=== PATIENT | female | born 1995 | race Caucasian/White ===

== ENCOUNTER 2017-04-30 21:01 | Emergency (ER) | payer OTHER ==
[2017-04-30 22:18] LABS: APPEARANCE,URINE CLEAR; BILIRUBIN,URINE NEGATIVE (NEGATIVE); GLUCOSE, URINE NEGATIVE (NEGATIVE); KETONES,URINE NEGATIVE (NEGATIVE); LEUKOCYTE ESTERASE,URINE NEGATIVE (NEGATIVE); NITRITE,URINE NEGATIVE (NEGATIVE); PROTEIN,URINE NEGATIVE (NEGATIVE); URINE SPECIFIC GRAVITY 1.012; UROBILINOGEN,URINE NEGATIVE mg/dL (<2.0)
[2017-04-30 23:49] LABS: ABSOLUTE BASOPHILS # (AUTO) 0.1 10^3/uL (0.0-0.2); ABSOLUTE EOSINOPHILS # (AUTO) 0.1 10^3/uL (0.0-0.6); ABSOLUTE LYMPHOCYTES (AUTO) 3.5 10^3/uL (0.5-4.7); ABSOLUTE MONOCYTES (AUTO) 0.6 10^3/uL (0.1-1.4); ABSOLUTE NEUT (AUTO) 6.2 10^3/uL (1.7-8.2); EOSINOPHILS % (AUTO) 1.1 % (0-6); HEMATOCRIT 38.5 % (36.0-47.0); HEMOGLOBIN 13.5 g/dL (12.0-15.5); LYMPHOCYTES % (AUTO) 33.6 % (13-45); MEAN CORPUSCULAR HEMOGLOBIN 29.6 pg (27.0-33.4); MEAN CORPUSCULAR VOLUME 85 fl (80-97); MONOCYTES % (AUTO) 5.2 % (3-13); RED BLOOD COUNT 4.55 10^6/uL (3.72-5.28); RED CELL DISTRIBUTION WIDTH 13.3 % (11.5-14.0); SEGMENTED NEUTROPHILS % (AUTO) 59.1 % (42-78); WHITE BLOOD COUNT 10.5 10^3/uL (4.0-10.5)
[2017-04-30] MEDS ORDERED: BUTALB/ACETAMINOPHEN/CAFFEINE 1 TAB EACH PO ONE (23:59)
[2017-04-30] MEDS ORDERED: IBUPROFEN 600 MG TABLET PO ONE (23:59)
--- NOTE | 2017-05-01 00:04 | ER Document Report ---
ED General - General Chief Complaint: Back Pain Stated Complaint: ABDOMINAL PAIN Time Seen by Provider: 04/30/17 22:45 Notes: Patient is a 22-year-old female with a past medical history of polycystic ovarian syndrome and ovarian cysts who presents with 1 week of intermittent low back pain and lower abdominal cramping. Does describe the pain as an intermittent, dull, aching, cramping pain to the low back and lower abdomen. She has not tried anything to improve the pain. She has not noted that anything worsens the pain. She denies a history of similar symptoms in the past. She has not seen her primary care doctor regarding today's concerns. She denies any fever or constitutional symptoms. No vomiting or diarrhea. She denies any dysuria, vaginal bleeding or discharge. This a last menstrual period was approximately 3 years ago. She does not use anything for control. TRAVEL OUTSIDE OF THE [place] IN LAST 30 DAYS: No - Related Data Allergies/Adverse Reactions: No Known Allergies Allergy (Unverified 04/01/16 12:19) Home Medications: Current Home Medications No Home Medications 04/30/17 [History] Past Medical History - General Information source: Patient - Social History Smoking Status: Never Smoker Frequency of alcohol use: None Drug Abuse: None Lives with: Family Family History: Reviewed & Not Pertinent Patient has suicidal ideation: No Patient has homicidal ideation: No Renal/ Medical History: Reports: Hx Ovarian Cysts - PCOS. Denies: Hx Peritoneal Dialysis Surgical Hx: Negative - Immunizations Hx Diphtheria, Pertussis, Tetanus Vaccination: Yes Review of Systems - Review of Systems Notes: Constitutional: Negative for fever. HENT: Negative for sore throat. Eyes: Negative for visual changes. Cardiovascular: Negative for chest pain. Respiratory: Negative for shortness of breath. Gastrointestinal: Positive for abdominal pain. Genitourinary: Negative for dysuria. Musculoskeletal: Positive for back pain. Skin: Negative for rash. Neurological: Negative for headaches, weakness or numbness. 10 point ROS negative except as marked above and in HPI. Physical Exam - Vital signs Vitals: Temp Pulse Resp BP Pulse Ox 98.1 F 84 16 127/78 H 100 04/30/17 21:48 04/30/17 21:48 04/30/17 21:48 04/30/17 21:48 04/30/17 21:48 Interpretation: Normal Notes: PHYSICAL EXAMINATION: GENERAL: Well-appearing, well-nourished and in no acute distress. HEAD: Atraumatic, normocephalic. EYES: Pupils equal round and reactive to light, extraocular movements intact, sclera anicteric, conjunctiva are normal. ENT: nares patent, oropharynx clear without exudates. Moist mucous membranes. NECK: Normal range of motion, supple without lymphadenopathy LUNGS: Breath sounds clear to auscultation bilaterally and equal. No wheezes rales or rhonchi. HEART: Regular rate and rhythm without murmurs ABDOMEN: Soft, nontender, normoactive bowel sounds. No guarding, no rebound. No masses appreciated. Back: No midline spinal tenderness, step-offs or deformities. No focal CVA tenderness. EXTREMITIES: Normal range of motion, no pitting or edema. No cyanosis. NEUROLOGICAL: No focal neurological deficits. Moves all extremities spontaneously and on command. PSYCH: Normal mood, normal affect. SKIN: Warm, Dry, normal turgor, no rashes or lesions noted. Course - Re-evaluation Re-evalutation: 05/01/17 00:03 Patient presents with 1 week of diffuse lower abdominal cramping and low back pain. Abdominal exam is benign with mild bilateral adnexal tenderness but no focal right lower quadrant tenderness, rebound or guarding to suggest an acute appendicitis. Moreover clinical history is not consistent with this diagnosis. I have a very low clinical suspicion for tubo-ovarian abscess or ovarian torsion based on history and exam. Patient does have a history of polycystic ovarian syndrome and has been anovulatory for at least 3 years. I suspect that this may be part of her clinical picture today. Her vitals otherwise within normal limits. Urinalysis is clear without any evidence of an acute cystitis or pyelonephritis. She has no CVA tenderness. Will proceed with transvaginal ultrasound, labs and reassess. 05/01/17 02:50 Labs are broadly unremarkable. Transvaginal ultrasound likewise unremarkable. Patient does continue to complain of low back pain but continues to deny any focal abdominal pain on palpation. At this time the exact etiology of her low back pain is unclear but I do not suspect any acute life-threatening pathology. At this time will discharge with return precautions and follow-up recommendations. Verbal discharge instructions given a the bedside and opportunity for questions given. Medication warnings reviewed. Patient is in agreement with this plan and has verbalized understanding of return precautions and the need for primary care follow-up in the next 24-72 hours. - Vital Signs Vital signs: Temp Pulse Resp BP Pulse Ox 98.1 F 74 20 121/74 98 04/30/17 21:48 05/01/17 03:24 05/01/17 03:24 05/01/17 03:24 05/01/17 03:24 - Laboratory Result Diagrams: 04/30/17 23:35 05/01/17 01:50 - Diagnostic Test Radiology reviewed: Reports reviewed Discharge - Discharge Clinical Impression: Abdominal cramping Low back pain Qualifiers: Chronicity: acute Back pain laterality: bilateral Sciatica presence: without sciatica Qualified Code(s): M54.5 - Low back pain Condition: Good Disposition: HOME, SELF-CARE Additional Instructions: You have been seen in the Emergency Department (ED) for abdominal pain. Your evaluation did not identify a clear cause of your symptoms but was generally reassuring. For your pain: Take ibuprofen 600 mg and acetaminophen 1000 mg every 6 hours together as needed for pain. Please follow up with your doctor as soon as possible regarding today's emergent visit and the symptoms that are bothering you. Return to the ED if your abdominal pain worsens or fails to improve, you develop bloody vomiting, bloody diarrhea, you are unable to tolerate fluids due to vomiting, fever greater than 101, or other symptoms that concern you.
[2017-05-01] MEDS ORDERED: LIDOCAINE 5% (700 MG) TRANSDERMAL ADH..PATCH TP ONE (02:43)
[2017-05-01] MEDS ORDERED: MORPHINE SULFATE IR 15 MG TABLET PO ONE (02:43)
--- NOTE | 2017-05-01 02:43 | RADIOLOGY REPORT (SQ) ---
EXAM: Pelvic ultrasound. INDICATION: eval bilateral adnexal pain TECHNIQUE: Grayscale and Doppler sonogram of the pelvis. Transvaginal technique was used for better evaluation of the pelvic viscera. COMPARISON: None. FINDINGS: Uterus: Anteverted. Measures 7.7 x 2.9 x 4.3 cm cm. Endometrial stripe: Measures 1 cm which is not thickened. Right ovary: Measures 3.7 x 3.3 x 2.3 cm. Normal doppler flow. Left ovary: Measures 3.4 x 3.7 x 2.7 cm. Normal doppler flow. Other: Free fluid: None. IMPRESSION: 1. Unremarkable pelvic ultrasound.
[2017-05-01 02:45] LABS: ALANINE AMINOTRANSFERASE 45 U/L (9-52); ALBUMIN 4.6 g/dL (3.5-5.0); ALKALINE PHOSPHATASE 110 U/L (38-126); ANION GAP 12 (5-19); ASPARTATE AMINO TRANSFERASE 36 U/L (14-36); BILIRUBIN,DIRECT 0.3 mg/dL (0.0-0.4); BILIRUBIN,TOTAL 0.5 mg/dL (0.2-1.3); BLOOD UREA NITROGEN 12 mg/dL (7-20); CALCIUM 9.6 mg/dL (8.4-10.2); CARBON DIOXIDE 26 mmol/L (22-30); CHLORIDE 103 mmol/L (98-107); CREATININE RESULT 0.72 mg/dL (0.52-1.25); GLUCOSE 87 mg/dL (75-110); POTASSIUM 3.7 mmol/L (3.6-5.0); SODIUM 140.6 mmol/L (137-145); TOTAL PROTEIN 7.7 g/dL (6.3-8.2)
[2017-05-01] MEDS ORDERED: KETOROLAC TROMETHAMINE INJ/PF 30 MG/1 ML SDV IV ONE (02:58)
[2017-05-01] MEDS ORDERED: METOCLOPRAMIDE HCL INJ/PF 10 MG/2 ML SDV IV ONE (02:58)
[2017-05-01 03:24] VITALS: BP 121/74
== END 2017-05-01 03:23 | disposition home or self-care (01) ==
LOC: ER 21:01
DX: M54.5 Low back pain (principal); R10.9 Unspecified abdominal pain; E28.2 Polycystic ovarian syndrome
CPT/HCPCS: 99284; 96374; 96375; 36415; 83690; 84703; 85025; 80053; 81001; 76830; 93976; J3490; J1885; J2765

== ENCOUNTER 2018-03-13 17:37 | Emergency (ER) | payer OTHER ==
[2018-03-13] MEDS ORDERED: NORMAL SALINE 1000 ML 1,000 ML IV ONE (18:01)
--- NOTE | 2018-03-13 18:01 | ER Document Report ---
ED Medical Screen (RME) - General Chief Complaint: Possible Kidney Stone Stated Complaint: FLANK PAIN Time Seen by Provider: 03/13/18 17:58 Mode of Arrival: Ambulatory Information source: Patient Notes: This is a 23-year-old female with a history of PCOS who presents to the emergency room with left CVA tenderness and hematuria. Patient was sent over from urgent care for possible kidney stone. Patient states she has had this pain for the last several weeks and [facility] and each time was sent home. She denies having any imaging studies or even a urine test. Also of significance is she has been seen at the urgent care several times this week for an allergic reaction which they feel is environmental (i.e. grass). The patient has gotten several steroid shots recently and is currently on prednisone and Benadryl. TRAVEL OUTSIDE OF THE [place] IN LAST 30 DAYS: No - Related Data Allergies/Adverse Reactions: grass Allergy (Uncoded 03/13/18 17:58) Past Medical History - Social History Frequency of alcohol use: None Drug Abuse: None Renal/ Medical History: Reports: Hx Ovarian Cysts - PCOS. Denies: Hx Peritoneal Dialysis - Immunizations Hx Diphtheria, Pertussis, Tetanus Vaccination: Yes Physical Exam - Vital signs Vitals: Temp Pulse Resp BP Pulse Ox 99.5 F 84 16 133/71 H 97 03/13/18 17:50 03/13/18 17:50 03/13/18 17:50 03/13/18 17:50 03/13/18 17:50 Course - Vital Signs Vital signs: Temp Pulse Resp BP Pulse Ox 99.5 F 84 16 133/71 H 97 03/13/18 17:50 03/13/18 17:50 03/13/18 17:50 03/13/18 17:50 03/13/18 17:50
[2018-03-13 18:58] LABS: APPEARANCE,URINE SLIGHTLY-CLOUDY; BILIRUBIN,URINE NEGATIVE (NEGATIVE); COLOR,URINE YELLOW; GLUCOSE, URINE NEGATIVE (NEGATIVE); KETONES,URINE NEGATIVE (NEGATIVE); LEUKOCYTE ESTERASE,URINE TRACE (NEGATIVE); NITRITE,URINE NEGATIVE (NEGATIVE); PROTEIN,URINE NEGATIVE (NEGATIVE); URINE SPECIFIC GRAVITY 1.027; UROBILINOGEN,URINE NEGATIVE mg/dL (<2.0)
[2018-03-13] MEDS ORDERED: FENTANYL CITRATE INJ/PF 100 MCG/2 ML AMPUL IV ONE (19:34)
[2018-03-13] MEDS ORDERED: ONDANSETRON HCL INJ/PF 4 MG/2 ML SDV IV ONE (19:34)
[2018-03-13 19:48] LABS: HEMATOCRIT 42.3 % (36.0-47.0); HEMOGLOBIN 14.4 g/dL (12.0-15.5); MEAN CORPUSCULAR HEMOGLOBIN 29.1 pg (27.0-33.4); MEAN CORPUSCULAR HGB CONC 34.1 g/dL (32.0-36.0); MEAN CORPUSCULAR VOLUME 86 fl (80-97); PLATELET COUNT 499 10^3/uL (150-450); RED BLOOD COUNT 4.95 10^6/uL (3.72-5.28); RED CELL DISTRIBUTION WIDTH 12.8 % (11.5-14.0); WHITE BLOOD COUNT 22.9 10^3/uL (4.0-10.5)
[2018-03-13 20:06] LABS: ABSOLUTE LYMPHOCYTES# (MANUAL) 3.7 10^3/uL (0.5-4.7); ABSOLUTE MONOCYTES # (MANUAL) 0.2 10^3/uL (0.1-1.4); BASOPHILS % (MANUAL) 0 % (0-2); EOSINOPHILS % (MANUAL) 0 % (0-6); LYMPHOCYTES % (MANUAL) 16 % (13-45); MONOCYTES % (MANUAL) 1 % (3-13); SEGMENTED NEUTROPHILS % (MAN) 83 % (42-78); TOTAL CELLS COUNTED 100
[2018-03-13 20:08] LABS: PLATELET COMMENT ADEQUATE; POIKILOCYTOSIS 1+; TOXIC GRANULATION SLIGHT
[2018-03-13 21:03] LABS: ALANINE AMINOTRANSFERASE 22 U/L (9-52); ALBUMIN 4.2 g/dL (3.5-5.0); ALKALINE PHOSPHATASE 117 U/L (38-126); ANION GAP 13 (5-19); ASPARTATE AMINO TRANSFERASE 18 U/L (14-36); BILIRUBIN,DIRECT 0.3 mg/dL (0.0-0.4); BILIRUBIN,TOTAL 0.3 mg/dL (0.2-1.3); BLOOD UREA NITROGEN 17 mg/dL (7-20); CARBON DIOXIDE 21 mmol/L (22-30); CHLORIDE 106 mmol/L (98-107); GLUCOSE 117 mg/dL (75-110); POTASSIUM 4.3 mmol/L (3.6-5.0); SODIUM 139.9 mmol/L (137-145); TOTAL PROTEIN 7.2 g/dL (6.3-8.2)
--- NOTE | 2018-03-13 21:33 | ER Document Report ---
ED GI/ - General Mode of Arrival: Ambulatory Information source: Patient TRAVEL OUTSIDE OF THE [place] IN LAST 30 DAYS: No <TIANNA RIBEIRO - Last Filed: 03/13/18 21:29> <DEMETRIS DORMAN - Last Filed: 03/15/18 08:31> - General Chief Complaint: Possible Kidney Stone Stated Complaint: FLANK PAIN Time Seen by Provider: 03/13/18 17:58 Notes: 23-year-old female presents to the emergency department today with complaints of hematuria. Patient states she was seen at an urgent care prior to arrival here and was told that she did not have a UTI. Patient states she has had left lower quadrant pain and left flank pain for 1 week. Patient complains of fevers , urinary urgency, and increasing pain with movement. Patient denies a history of kidney stones or vomiting. (TIANNA RIBEIRO) - Related Data Allergies/Adverse Reactions: grass Allergy (Uncoded 03/13/18 17:58) Past Medical History - General Information source: Patient - Social History Smoking Status: Never Smoker Cigarette use (# per day): No Frequency of alcohol use: None Drug Abuse: None Lives with: Family Family History: Reviewed & Not Pertinent Patient has suicidal ideation: No Patient has homicidal ideation: No Renal/ Medical History: Reports: Hx Ovarian Cysts - PCOS. Denies: Hx Peritoneal Dialysis - Immunizations Hx Diphtheria, Pertussis, Tetanus Vaccination: Yes <TIANNA RIBEIRO - Last Filed: 03/13/18 21:29> Review of Systems - Review of Systems Constitutional: See HPI, Fever EENT: No symptoms reported Cardiovascular: No symptoms reported Respiratory: No symptoms reported Gastrointestinal: denies: Vomiting Genitourinary: See HPI, Flank pain, Urgency Female Genitourinary: No symptoms reported Musculoskeletal: No symptoms reported Skin: No symptoms reported Hematologic/Lymphatic: No symptoms reported Neurological/Psychological: No symptoms reported -: Yes All other systems reviewed and negative <TIANNA RIBEIRO - Last Filed: 03/13/18 21:29> Physical Exam <TIANNA RIBEIRO - Last Filed: 03/13/18 21:29> <DEMETRIS DORMAN - Last Filed: 03/15/18 08:31> - Vital signs Vitals: Temp Pulse Resp BP Pulse Ox 99.5 F 84 16 133/71 H 97 03/13/18 17:50 03/13/18 17:50 03/13/18 17:50 03/13/18 17:50 03/13/18 17:50 - Notes Notes: Physical Exam: General: Alert, appears well. HEENT: Normocephalic. Atraumatic. PERRL. Extraocular movements intact. Oropharynx clear. Neck: Supple. Non-tender. Respiratory: No respiratory distress. Clear and equal breath sounds bilaterally. Cardiovascular: Regular rate and rhythm. Abdominal: Normal Inspection. Non-tender. No distension. Normal Bowel Sounds. Back: Non-tender. No deformity or step off. Extremities: Moves all four extremities. Upper extremities: Normal inspection. Normal ROM. Lower extremities: Normal inspection. No edema. Normal ROM. Neurological: Normal cognition. AAOx4. Normal speech. Psychological: Normal affect. Normal Mood. Skin: Warm. Dry. Normal color. (TIANNA RIBEIRO) Course - Laboratory Result Diagrams: 03/13/18 19:35 03/13/18 20:20 <TIANNA RIBEIRO - Last Filed: 03/13/18 21:29> - Laboratory Result Diagrams: 03/13/18 19:35 03/13/18 20:20 - EKG Interpretation by [facility] EKG shows normal: Sinus rhythm Rate: Normal Rhythm: NSR - Normal axis and intervals <DEMETRIS DORMAN - Last Filed: 03/15/18 08:31> - Re-evaluation Re-evalutation: 03/13/18 22:28 Patient's labs within normal limits nonsignificant other than leukocytosis. She is currently taking prednisone on a daily basis which could explain her reactive leukocytosis due to WBC demargination. Her CT scan shows no acute findings. She does have blood in her urine but does not show any stones on CT and her pain has decreased while in the emergency department. Patient likely passed a kidney stone which is caused her pain as well as her hematuria. I discussed with her the results and she seemed comforted by them. I did state that she needed to have her urine rechecked in a week to ensure she does not have continuing hematuria and possible further workup. Her kidney function is normal. At the end of our conversation she states she has been having a dull chest pain that has become worse over the day. She states she has been anxious today due to being in the hospital but states that her sister who is only 25 years old has had 5 heart attacks. She cannot give any specifics as to what caused these although she states she is overweight. Due to family history we will obtain single troponin as pain has been constant throughout the day since this morning although was not revealed to me on initial history and physical. Will also obtain an EKG. if no significant findings patient will be discharged. 03/14/18 00:09 Patient's troponin negative, no concerning findings on EKG. Patient will be seen by her primary care physician Thursday of this coming week with previously scheduled appointment. Return precautions provided (DEMETRIS DORMAN) - Vital Signs Vital signs: Temp Pulse Resp BP Pulse Ox 97.2 F 71 18 127/62 H 96 03/14/18 00:34 03/14/18 00:34 03/14/18 00:34 03/14/18 00:34 03/14/18 00:34 - Laboratory Laboratory results interpreted by me: 03/13/18 03/13/18 03/13/18 18:06 19:35 20:20 WBC 22.9 H Plt Count 499 H Seg Neuts % (Manual) 83 H Monocytes % (Manual) 1 L Abs Neuts (Manual) 19.0 H Carbon Dioxide 21 L Glucose 117 H Urine Blood LARGE H Ur Leukocyte Esterase TRACE H Discharge <TIANNA RIBEIRO - Last Filed: 03/13/18 21:29> <DEMETRIS DORMAN - Last Filed: 03/15/18 08:31> - Discharge Clinical Impression: Flank pain, Chest tightness or pressure Hematuria Qualifiers: Hematuria type: unspecified type Qualified Code(s): R31.9 - Hematuria, unspecified Abdominal pain Qualifiers: Abdominal location: left lower quadrant Qualified Code(s): R10.32 - Left lower quadrant pain Condition: Good Disposition: HOME, SELF-CARE Instructions: Abdominal Pain ([facility]) Additional Instructions: Per discussion, please follow-up with your previously scheduled appointment with your primary care physician Thursday of this coming week. Please have them recheck her urine for blood. Your CT scan of your abdomen and pelvis showed no concerning findings however, if your symptoms are not improving in the next 24-48 hours or you begin to develop high-grade fevers of greater than 101 Fahrenheit for more than an hour please return for reevaluation to the emergency department. Prescriptions: Promethazine HCl 25 mg PO ASDIR PRN #20 tablet PRN Reason: Referrals: RADHA LEE FNP [Primary Care Provider] - Follow up as needed Scribe Attestation: 03/15/18 08:30 I personally performed the services described in the documentation, reviewed and edited the documentation which was dictated to the scribe in my presence, and it accurately records my words and actions. (DEMETRIS DORMAN) Scribe Documentation - Scribe Written by Emreibe:: Jeanie Mayer, 03/13/2018 [id number] acting as scribe for :: Tyrone <TIANNA RIBEIRO - Last Filed: 03/13/18 21:29>
--- NOTE | 2018-03-13 21:49 | RADIOLOGY REPORT (SQ) ---
EXAM DESCRIPTION: CT ABD/PELVIS WITH IV ONLY COMPLETED DATE/TIME: 03/13/2018 9:39 pm REASON FOR STUDY: LLQ and L flank pain COMPARISON: None. TECHNIQUE: CT scan of the abdomen and pelvis performed using helical scanning technique with dynamic intravenous contrast injection. No oral contrast. Images reviewed with lung, soft tissue, and bone windows. Reconstructed coronal and sagittal MPR images reviewed. Delayed images for evaluation of the urinary system also acquired. All images stored on PACS. All CT scanners at this facility use dose modulation, iterative reconstruction, and/or weight based d osing when appropriate to reduce radiation dose to as low as reasonably achievable (ALARA). [facility]: Dose Right [facility]: CareDose [facility]: Dose Right [facility]: Teradose 4D [facility]: [email or web address] CONTRAST TYPE AND DOSE: NOT REPORTED. RENAL FUNCTION: BUN 17; creatinine 0.61 RADIATION DOSE: . LIMITATIONS: None. FINDINGS: LOWER CHEST: No significant findings. No nodules or infiltrates. LIVER: Normal size. No masses. No dilated ducts. SPLEEN: Normal size. No focal lesions. PANCREAS: No masses. No significant calcifications. No adjacent inflammation or peripancreatic fluid collections. Pancreatic duct not dilated. GALLBLADDER: No identified stones by CT criteria. No inflammatory changes to suggest cholecystitis. ADRENAL GLANDS: No significant masses or asymmetry. RIGHT KIDNEY AND URETER: No solid masses. No significant calcifications. No hydronephrosis or hyd roureter. LEFT KIDNEY AND URETER: No solid masses. No significant calcifications. No hydronephrosis or hydr oureter. AORTA AND VESSELS: No aneurysm. No dissection. Renal arteries, SMA, celiac without stenosis. RETROPERITONEUM: No retroperitoneal adenopathy, hemorrhage or masses. BOWEL AND PERITONEAL CAVITY: No masses or inflammatory changes. No free fluid or peritoneal masses. APPENDIX: Normal. PELVIS: No mass. No free fluid. Normal bladder. ABDOMINAL WALL: No masses. No hernias. BONES: No significant or acute findings. OTHER: No other significant finding. IMPRESSION: NO SIGNIFICANT OR ACUTE FINDING IN THE ABDOMEN OR PELVIS ON CT SCAN WITH IV CONTRAST. TECHNICAL DOCUMENTATION: JOB ID: [id number] Quality ID # [id number]: Final reports with documentation of one or more dose reduction techniques (e.g., Au tomated exposure control, adjustment of the mA and/or kV according to patient size, use of iterative reconstruction technique) 2010 [employer]- All Rights Reserved Reading location - IP/workstation name: [email or web address]
--- NOTE | 2018-03-13 22:48 | EKG REPORT ---
SEVERITY:- BORDERLINE ECG - SINUS RHYTHM BORDERLINE T ABNORMALITIES, INFERIOR LEADS : Confirmed by: Chucky Greenberg MD 13-Mar-2018 22:48:37
[2018-03-14 00:43] VITALS: BP 127/62
== END 2018-03-14 00:40 | disposition home or self-care (01) ==
LOC: ER 17:37
DX: R10.9 Unspecified abdominal pain (principal); R10.32 Left lower quadrant pain; R31.9 Hematuria, unspecified; R39.15 Urgency of urination; R50.9 Fever, unspecified; F41.9 Anxiety disorder, unspecified; R07.9 Chest pain, unspecified; D72.829 Elevated white blood cell count, unspecified; Z79.52 Long term (current) use of systemic steroids; Z91.048 Other nonmedicinal substance allergy status; Z82.49 Family history of ischemic heart disease and other diseases of the circulatory system
CPT/HCPCS: 93005; 99284; 96361; 96374; 96375; 36415; 87086; 84702; 83690; 85025; 80053; 81001; 84484; 74177; 93010; J3010; J2405; J7030